=== PATIENT | male | born 1945 | race Caucasian/White ===

== ENCOUNTER 2017-11-16 05:22 | Day surgery (SDC) | payer OTHER ==
[~2017-11-16] VITALS: Ht 172.7 cm; Wt 74.5 kg
[2017-11-16] MEDS ORDERED: EPINEPHrine 1:1,000 [1 MG/ML] AMP IM ONE (05:23)
[2017-11-16] MEDS ORDERED: BENZOCAINE 20% 50 MCG/SPRAY 57 GM TP ONE (05:23)
[2017-11-16] MEDS ORDERED: LIDOCAINE HCL 4% 50 ML SOLUTION TP ONE (05:23)
[2017-11-16] MEDS ORDERED: LIDOCAINE HCL 2% 30 ML JELLY TP ONE (05:23)
[2017-11-16] MEDS ORDERED: SODIUM CHLORIDE 0.9% 1,000 ML IV ONE ×2 (05:33→06:30)
[2017-11-16] MEDS ORDERED: DORZ10DR18 OU (07:08)
[2017-11-16] MEDS ORDERED: FAMO20 PO (07:08)
[2017-11-16] MEDS ORDERED: MOME13HF IH (07:08)
[2017-11-16] MEDS ORDERED: DORZ1DRO5 OU (07:08)
[2017-11-16] MEDS ORDERED: FLUT1BLS IH (07:08)
[2017-11-16] MEDS ORDERED: ALBU8.5H8 IH (07:08)
[2017-11-16] MEDS ORDERED: FLUT16H NASAL (07:08)
[2017-11-16] MEDS ORDERED: TAMS0.4C32 PO (07:08)
[2017-11-16] MEDS ORDERED: BRIM15DR2 OU (07:08)
[2017-11-16] MEDS ORDERED: MONT10TA21 PO (07:08)
[2017-11-16] MEDS ORDERED: PRED10TA3 PO (07:08)
[2017-11-16] MEDS ORDERED: CARB15DR OU (07:08)
[2017-11-16] MEDS ORDERED: TRAZ-186 PO (07:08)
[2017-11-16] MEDS ORDERED: BIMA12.5OS OU (07:08)
[2017-11-16] MEDS ORDERED: FentaNYL CITRATE-PF 100 MCG/2 ML VIAL ONE (07:41)
[2017-11-16] MEDS ORDERED: MIDAZOLAM HCL 2 MG/2 ML VIAL ONE (07:41)
[2017-11-16] MEDS ORDERED: MethylPREDNISolone SOD SUCC 125 MG/2 ML VIAL ONE (08:44)
[2017-11-16] MEDS ORDERED: MethylPREDNISolone SOD SUCC 125 MG/2 ML VIAL IVP ONE (08:45)
[2017-11-16] MEDS ORDERED: OXYGEN THERAPY IH SCH (20:00)
== END 2017-11-16 10:10 | disposition home or self-care (01) ==
LOC: SURGERY 05:22
PROVIDERS: ATTEND Internal Medicine Critical Care Medicine
DX: J38.4 Edema of larynx (principal); B37.0 Candidal stomatitis; J84.111 Idiopathic interstitial pneumonia, not otherwise specified; J45.998 Other asthma; K21.9 Gastro-esophageal reflux disease without esophagitis; Z87.891 Personal history of nicotine dependence; Z79.891 Long term (current) use of opiate analgesic; Z79.52 Long term (current) use of systemic steroids; Z72.89 Other problems related to lifestyle; Z98.41 Cataract extraction status, right eye; Z98.42 Cataract extraction status, left eye; Z88.6 Allergy status to analgesic agent; Z79.899 Other long term (current) drug therapy; Z98.890 Other specified postprocedural states
CPT/HCPCS: 31623; 31624; 71045; 87015; 87070; 87077; 87186; 87205; 87206; 87220; 88108; 88312; J0171; J2250; J2930; J3010; J7030